=== PATIENT | female | born 1940 | race Caucasian/White ===

== ENCOUNTER 2019-07-10 20:03 | Emergency (ER) | payer OTHER ==
--- NOTE | 2019-07-10 21:16 | NUR ---
Patient called for the first time, patient not seen in ER lobby, ER hallway, or ER entrance.
--- NOTE | 2019-07-10 21:21 | NUR ---
Patient called for the second time, patient not seen in ER lobby, ER hallway, or ER entrance.
--- NOTE | 2019-07-10 21:26 | NUR ---
Patient called for the third time, patient not seen in ER lobby, ER hallway, or ER entrance.
== END 2019-07-10 21:26 | disposition left against medical advice (07) ==
LOC: SED 20:03
DX: T78.49XA Other allergy, initial encounter (principal); Z53.21 Procedure and treatment not carried out due to patient leaving prior to being seen by health care provider